=== PATIENT | male | born 1980 | race Hispanic/Latino ===

== ENCOUNTER 2017-09-01 09:33 | Outpatient (CLI) | payer OTHER ==
--- NOTE | 2017-09-01 11:56 | XRay Report ---
LUMBOSACRAL SPINE, 3 VIEWS: History: Low back pain Findings: The vertebral bodies, disk spaces and posterior elements are intact. No compression deformity or malalignment. Mild to moderate degenerative disc disease and facet arthropathy are identified at all levels. L5-S1 is the most affected level. The SI joints are symmetric and unremarkable. Impression: Lumbar spondylosis.
== END 2017-09-01 09:34 | disposition home or self-care (01) ==
LOC: XRAY 09:33
PROVIDERS: ATTEND Internal Medicine
DX: Z02.71 Encounter for disability determination (principal); M47.896 Other spondylosis, lumbar region; M51.36 Other intervertebral disc degeneration, lumbar region; M12.88 Other specific arthropathies, not elsewhere classified, other specified site
CPT/HCPCS: 72100